=== PATIENT | male | born 2000 ===

== ENCOUNTER → 2018-06-11 | Outpatient (CLI) | payer BC | LOC: BMCIMAGING 15:40 | PROVIDERS: ATTEND Family Medicine | DX: S99.911A Unspecified injury of right ankle, initial encounter (principal); S69.92XA Unspecified injury of left wrist, hand and finger(s), initial encounter ==

== ENCOUNTER → 2018-07-20 | Outpatient (CLI) | payer OTHER, BC | END | disposition home or self-care (01) | LOC: BMCIMAGING 13:33 | PROVIDERS: ATTEND Podiatrist Foot & Ankle Surgery | DX: S99.911A Unspecified injury of right ankle, initial encounter (principal) ==